=== PATIENT | female | born 1955 | race African-American/Black ===

== ENCOUNTER → 2019-10-10 | Emergency (ER) | payer MEDICAID ==
[~2019-10-10] VITALS: Ht 170.2 cm; Wt 127.0 kg
[~2019-10-10] MED LIST: ACTOS15 MG ORAL; AMLODIPINE BESY10 MG ORAL; BENAZEPRIL HCL40 MG ORAL; CEPHALEXIN500 MG ORAL; GLIPIZIDE5 MG ORAL; IBU800 MG PO; LANTUS SOL100 UNIT/1 SUBQ; LATUDA80 MG PO; LIDODERM700 M1 TOPIC; OXCARBAZEPINE; PRAVASTATIN SOD20 M1 ORAL; TOPIRAMATE25 MG ORAL
[2019-10-10 15:20] VITALS: BP 125/76
--- NOTE | 2019-10-10 15:20 | NUR ---
ER Nurse Note: Pt walked in c/o lower back pain with no trauma. Pt stated 5/10 pain, more with movement. Skin intact. Pt also expressed burning when urination, urinary frequency. Urine collected. Will continue to montior.
[2019-10-10 16:03] LABS: APPEARANCE,URINE CLEAR; BILIRUBIN, URINE NEGATIVE (NEGATIVE); COLOR,URINE PALE YELLOW; GLUCOSE, URINE (UA) NEGATIVE (NEGATIVE); KETONES,URINE NEGATIVE (NEGATIVE); LEUKOCYTE ESTERASE ,URINE NEGATIVE (NEGATIVE); NITRITE,URINE NEGATIVE (NEGATIVE); PH,URINE 7 (4.5-8.0); PROTEIN,URINE NEGATIVE (NEGATIVE); UROBILINOGEN,URINE NORMAL MG/DL (0.0-1.0)
--- NOTE | 2019-10-10 16:27 | Emergency Room Report ---
History of Present Illness General Chief Complaint: Back Pain-No Injury Source: Patient Present Illness HPI 63-year-old morbidly obese female with history of type 2 diabetes currently controlled here complaining of 7 out of 10 lower back pain without radiation. Patient denies any fall or injury or heavy lifting. Denies tingling and numbness, saddle paresthesia, urinary or bowel incontinence. Also complains of 1 week of urinary frequency and urgency. Has not taken medication for symptom relief. Patient reports that she takes Robaxin for chronic pain as well as medication for insomnia. Denies abdominal pain, nausea vomiting, fever and chills, flank pain. No CVA tenderness noted. Complains of suprapubic pain upon urination. Denies vaginal discharge, hematuria. Allergies: Coded Allergies: No Known Allergies (Unverified , 10/10/19) Patient History Past Medical History: see triage record Past Surgical History: unable to obtain Pertinent Family History: none Now: No Immunizations: UTD Reviewed Nursing Documentation: PMH: Agreed; PSxH: Agreed Nursing Documentation-PMH Past Medical History: No History, Except For Hx Cardiac Problems: Yes - high cholesterol Hx Hypertension: Yes Hx Diabetes: Yes Review of Systems All Other Systems: negative except mentioned in HPI Physical Exam Vital Signs Date Time Temp Pulse Resp B/P (MAP) Pulse Ox O2 Delivery O2 Flow Rate FiO2 10/10/19 15:03 98.1 73 16 125/76 (92) 99 Room Air Sp02 EP Interpretation: reviewed, normal General Appearance: no apparent distress, alert, GCS 15, non-toxic Head: normocephalic, atraumatic Eyes: bilateral eye normal inspection, bilateral eye PERRL ENT: hearing grossly normal, normal pharynx, no angioedema, normal voice Neck: full range of motion, supple/symm/no masses Respiratory: chest non-tender, lungs clear, normal breath sounds, no rhonchi, no respiratory distress, no retraction, no accessory muscle use, no wheezing, speaking full sentences Cardiovascular #1: regular rate, rhythm, no edema, no murmur, normal capillary refill Cardiovascular #2: 2+ dorsalis pedis (R), 2+ dorsalis pedis (L) Gastrointestinal: normal bowel sounds, non tender, soft, non-distended, no guarding, no rebound Rectal: deferred Genitourinary: no CVA tenderness Musculoskeletal: back normal, normal range of motion, no calf tenderness, gait/ station normal, non-tender Neurologic: alert, motor strength/tone normal, oriented x3, sensory intact, responsive, speech normal Psychiatric: judgement/insight normal, memory normal, mood/affect normal, no suicidal/homicidal ideation Skin: no rash Lymphatic: no adenopathy Medical Decision Making PA Attestation All my diagnosis and treatment plans were reviewed ad discussed with my supervising physician Dr. Rodrigues Diagnostic Impression: Primary Impression: Urinary frequency Additional Impression: Spasm of lumbar paraspinous muscle ER Course 63-year-old morbidly obese female with history of type 2 diabetes currently controlled here complaining of 7 out of 10 lower back pain without radiation. Patient denies any fall or injury or heavy lifting. Denies tingling and numbness, saddle paresthesia, urinary or bowel incontinence. Also complains of 1 week of urinary frequency and urgency. Has not taken medication for symptom relief. Patient reports that she takes Robaxin for chronic pain as well as medication for insomnia. Denies abdominal pain, nausea vomiting, fever and chills, flank pain. No CVA tenderness noted. Complains of suprapubic pain upon urination. Denies vaginal discharge, hematuria. Ddx considered but are not limited to: UTI, pyelonephritis, urinary incontinence , prolapsed bladder, lumbar sprain versus strain versus fracture versus spasm Vital signs: are WNL, pt. is afebrile H&PE are most consistent with: Urinary frequency, lumbar spasm ORDERS: UA, urine cx, Keflex, ibuprofen, lidocaine patch ED INTERVENTIONS: None required at this time. DISCHARGE: At this time pt. is stable for d/c to home. Will provide printed patient care instructions, and any necessary prescriptions. Care plan and follow up instructions have been discussed with the patient prior to discharge. Patient to take antibiotics as directed even urine analysis does not show any infection due to patient type headache status patient to take antibiotics. Also follow with primary care physician. Likely secondary to lumbar spasm and also morbid obesity patient continues take Robaxin as directed by primary care physician as well as ibuprofen and lidocaine patches. Weight loss advised No x-ray of lumbar region is needed at this time patient did not fall or injure herself. Last Vital Signs Date Time Temp Pulse Resp B/P (MAP) Pulse Ox O2 Delivery O2 Flow Rate FiO2 10/10/19 15:20 98.1 78 16 125/76 99 Room Air Disposition: HOME, SELF-CARE Scripts Cephalexin* (KEFLEX*) 500 Mg Capsule 500 MG ORAL EVERY 6 HOURS for 7 Days, #28 CAP Prov: Lachelle Huntley 10/10/19 Lidocaine Patch* (Lidoderm Patch*) 1 Each Adh..patch 1 PATCH TOPIC DAILY, #7 PATCH 0 Refills Patch(es) may remain in place for up to 12 hours in any 24-hour period. Prov: Lachelle Huntley 10/10/19 Ibuprofen (Ibu) 800 Mg Tablet 800 MG PO BID, #20 TAB Prov: Lachelle Huntley 10/10/19 Patient Instructions: Back Pain, Adult, Urinary Tract Infection, [id number] Additional Instructions: Take medication as directed, follow-up with your primary care provider, if worsening symptoms return to emergency room. Due to your diabetes status to be treated for possible urinary tract infection Lachelle Huntley Oct 10, 2019 16:27
== END | disposition home or self-care (01) ==
LOC: EMR 15:46
DX: M62.830 Muscle spasm of back (principal); R35.0 Frequency of micturition; E11.9 Type 2 diabetes mellitus without complications; E78.00 Pure hypercholesterolemia, unspecified; I10 Essential (primary) hypertension
CPT/HCPCS: 81003; Z7502; 99282